=== PATIENT | female | born 1995 | race Caucasian/White ===

== ENCOUNTER 2020-03-11 23:07 | Emergency (ER) | payer MEDICAID ==
[2020-03-11] MEDS ORDERED: Ondansetron 4 MG Tab.DIS PO ONE (23:08)
--- NOTE | 2020-03-11 23:35 | EDM.PDOC ---
ED HPI GENERAL MEDICAL PROBLEM - General Chief Complaint: Gastrointestinal Problem Stated Complaint: VOMITING Time Seen by Provider: 03/11/20 23:30 Source of Information: Reports: Patient History Limitations: Reports: No Limitations - History of Present Illness INITIAL COMMENTS - FREE TEXT/NARRATIVE: 24-year-old female who reports he woke at approximately 9 AM today with nausea and dizziness and then developed vomiting. She reports she has had multiple episodes of vomiting since 9 AM and has not been able to retain any fluids. She states that he found that she tries to drink liquids she has emesis following this. She reports that she has had vomiting times about 20 times today. It is been nonbilious. It has been pretty much whatever she's tried to drink. Have a bowel movement today and it was normal. She has had no fevers. She has had decreased urine output but no dysuria or hematuria. She denies any possibility of . She does report a burning pain in her upper abdomen that is more of a nauseated type feeling and that has been present since she has developed the vomiting. She rates the pain as a 4/10. It does not radiate. It is worse with palpation and with vomiting she also has some burning in her throat. She states she did drink 5-6 on calling drinks last night and when she awoke this morning she thought she just had a "hangover". No headache. She does have some generalized malaise and dizziness/weakness but she has had no syncope or presyncope. There are no other associated signs or symptoms. There are no other modifying factors. 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-Bismol) - Related Data Allergies Allergy/AdvReac Type Severity Reaction Status Date / Time No Known Allergies Allergy Verified 03/11/20 23:20 Home Meds: Home Meds NK [No Known Home Meds] 03/11/20 [History] Past Medical History Psychiatric History: Reports: Anxiety, Depression, Other (See Below) (On no medications.) - Past Surgical History Female Surgical History: Reports: D&C Social & Family History - Tobacco Use Smoking Status *Q: Current Every Day Smoker Years of Tobacco use: 5 Packs/Tins Daily: 1 - Alcohol Use Alcohol Use History: Yes Alcohol Use Frequency: Socially (Sometimes quite heavily) - Recreational Drug Use Recreational Drug Use: No - Living Situation & Occupation 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 Denies: Dysuria, Flank Pain Musculoskeletal: Reports: No Symptoms Skin: Reports: No Symptoms Neurological: Reports: Dizziness Hematologic/Lymphatic: Reports: No Symptoms Immunologic: Reports: No Symptoms ED EXAM, GENERAL - Physical Exam Exam: See Below Exam Limited By: No Limitations General Appearance: Alert, WD/WN, Moderate Distress (Appears in some discomfort. She is, however, nontoxic appearing.) Eye Exam: Bilateral Eye: EOMI, Normal Inspection (Sclera are anicteric), PERRL Ears: Normal External Exam, Hearing Grossly Normal Ear Exam: Bilateral Ear: Auricle Normal Nose: Normal Inspection, Normal Mucosa, No Blood Throat/Mouth: Normal Voice, No Airway Compromise, Other (Mucous membranes) Head: Atraumatic, Normocephalic Neck: Normal Inspection, Supple, Non-Tender, Full Range of Motion Respiratory/Chest: No Respiratory Distress, Lungs Clear, Normal Breath Sounds, No Accessory Muscle Use, Chest Non-Tender Cardiovascular: Normal Peripheral Pulses, Regular Rate, Rhythm, No Murmur Peripheral Pulses: 2+: Radial (L), Radial (R), Dorsalis Pedis (L), Dorsalis Pedis (R) GI/Abdominal: Normal Bowel Sounds, Soft, No Mass, Other (Palpation in her epigastrium causes her to have increased nausea.) Back Exam: Normal Inspection Extremities: Normal Inspection, Normal Range of Motion, Non-Tender, No Pedal Edema, Normal Capillary Refill Neurological: Alert, Oriented, CN II-XII Intact, Normal Cognition, No Motor/ Sensory Deficits Skin Exam: Warm, Dry, Intact, Normal Color, No Rash Course - Vital Signs Last Recorded V/S: Last Vital Signs Temp 36.6 C 03/11/20 23:21 Pulse 61 03/11/20 23:21 Resp 14 03/11/20 23:21 BP 140/91 H 03/11/20 23:21 Pulse Ox 100 03/11/20 23:21 - Orders/Labs/Meds Orders: Active Orders 24 hr Category Date Time Status Sodium Chloride 0.9% [Saline Flush] Med 03/11/20 23:43 Active 10 ml FLUSH ASDIRECTED PRN Peripheral IV Insertion Adult [OM.PC] Routine Oth 03/11/20 23:43 Ordered Medication Orders Sodium Chloride (Saline Flush) 10 ml FLUSH ASDIRECTED PRN PRN Reason: Keep Vein Open Last Admin: 03/12/20 00:09 Dose: 10 ml Labs: Laboratory Tests 03/12/20 03/12/20 03/12/20 Range/Units 00:00 00:00 01:13 WBC 14.1 H (4.5-12.0) X10-3/uL RBC 5.14 (3.23-5.20) x10(6)uL Hgb 15.6 H (11.5-15.5) g/dL Hct 47.0 (30.0-51.3) % MCV 91.4 (80-96) fL MCH 30.3 (27.7-33.6) pg MCHC 33.2 (32.2-35.4) g/dL RDW 12.8 (11.5-15.5) % Plt Count 331 (125-369) X10(3)uL MPV 7.8 (7.4-10.4) fL Add Manual Diff Yes Neutrophils % (Manual) 90 H (46-82) % Lymphocytes % (Manual) 6 L (13-37) % Monocytes % (Manual) 4 (4-12) % Sodium 142 (135-145) mmol/L Potassium 3.8 (3.5-5.3) mmol/L Chloride 104 (100-110) mmol/L Carbon Dioxide 25 (21-32) mmol/L BUN 14 (7-18) mg/dL Creatinine 0.8 (0.55-1.02) mg/dL Est Cr Clr Drug Dosing 118.27 mL/min Estimated GFR (MDRD) > 60 (>60) BUN/Creatinine Ratio 17.5 (9-20) Glucose 127 H (80-116) mg/dL Calcium 9.7 (8.6-10.2) mg/dL Magnesium 1.5 L (1.8-2.5) mg/dL Total Bilirubin 0.7 (0.1-1.3) mg/dL AST 15 (5-25) IU/L ALT 23 (12-36) U/L Alkaline Phosphatase 81 (56-112) IU/L Total Protein 8.3 H (6.0-8.0) g/dL Albumin 4.4 (3.5-5.2) g/dL Globulin 3.9 g/dL Albumin/Globulin Ratio 1.1 Urine Color Yellow (YELLOW) Urine Appearance Slightly cloudy (CLEAR) Urine pH 6.0 (5.0-6.5) Ur Specific Mccrory 1.020 (1.010-1.025) Urine Protein 30 H (NEGATIVE) mg/dL Urine Glucose (UA) Normal (NORMAL) mg/dL Urine Ketones 50 H (NEGATIVE) mg/dL Urine Occult Blood Negative (NEGATIVE) Urine Nitrite Negative (NEGATIVE) Urine Bilirubin Negative (NEGATIVE) Urine Urobilinogen Normal (NEGATIVE) mg/dL Ur Leukocyte Esterase Small H (NEGATIVE) Urine RBC 0-5 (0-5) Urine WBC 0-5 (0-5) Ur Squamous Epith Cells Moderate H (NS,R,O) Amorphous Sediment Few Urine Bacteria Few H (NS) Urine Mucus Many H (NS) Urine HCG, Qual (NEGATIVE) 03/12/20 Range/Units 01:13 WBC (4.5-12.0) X10-3/uL RBC (3.23-5.20) x10(6)uL Hgb (11.5-15.5) g/dL Hct (30.0-51.3) % MCV (80-96) fL MCH (27.7-33.6) pg MCHC (32.2-35.4) g/dL RDW (11.5-15.5) % Plt Count (125-369) X10(3)uL MPV (7.4-10.4) fL Add Manual Diff Neutrophils % (Manual) (46-82) % Lymphocytes % (Manual) (13-37) % Monocytes % (Manual) (4-12) % Sodium (135-145) mmol/L Potassium (3.5-5.3) mmol/L Chloride (100-110) mmol/L Carbon Dioxide (21-32) mmol/L BUN (7-18) mg/dL Creatinine (0.55-1.02) mg/dL Est Cr Clr Drug Dosing mL/min Estimated GFR (MDRD) (>60) BUN/Creatinine Ratio (9-20) Glucose (80-116) mg/dL Calcium (8.6-10.2) mg/dL Magnesium (1.8-2.5) mg/dL Total Bilirubin (0.1-1.3) mg/dL AST (5-25) IU/L ALT (12-36) U/L Alkaline Phosphatase (56-112) IU/L Total Protein (6.0-8.0) g/dL Albumin (3.5-5.2) g/dL Globulin g/dL Albumin/Globulin Ratio Urine Color (YELLOW) Urine Appearance (CLEAR) Urine pH (5.0-6.5) Ur Specific Mccrory (1.010-1.025) Urine Protein (NEGATIVE) mg/dL Urine Glucose (UA) (NORMAL) mg/dL Urine Ketones (NEGATIVE) mg/dL Urine Occult Blood (NEGATIVE) Urine Nitrite (NEGATIVE) Urine Bilirubin (NEGATIVE) Urine Urobilinogen (NEGATIVE) mg/dL Ur Leukocyte Esterase (NEGATIVE) Urine RBC (0-5) Urine WBC (0-5) Ur Squamous Epith Cells (NS,R,O) Amorphous Sediment Urine Bacteria (NS) Urine Mucus (NS) Urine HCG, Qual Negative (NEGATIVE) Meds: Medications Generic Name Dose Route Start Last Admin Trade Name Freq PRN Reason Stop Dose Admin Sodium Chloride 10 ml 03/11/20 23:43 03/12/20 00:09 Saline Flush FLUSH 10 ml ASDIRECTED PRN Administration Keep Vein Open Discontinued Medications Generic Name Dose Route Start Last Admin Trade Name Freq PRN Reason Stop Dose Admin Promethazine HCl 25 mg/ Sodium 51 mls @ 200 mls/hr 03/11/20 23:45 03/12/20 00 :09 Chloride IV 03/12/20 00:00 200 mls/hr ONETIME ONE Administration Sodium Chloride 1,000 mls @ 999 mls/hr 03/11/20 23:44 03/12/20 00:09 Normal Saline IV 03/12/20 00:44 999 mls/hr .BOLUS ONE Administration Magnesium Sulfate 2 gm/ Premix 50 mls @ 150 mls/hr 03/12/20 00:25 03/12/20 00 :32 IV 03/12/20 00:44 150 mls/hr ONETIME ONE Administration Sodium Chloride 1,000 mls @ 999 mls/hr 03/12/20 00:40 Normal Saline IV 03/12/20 01:40 .BOLUS ONE - Re-Assessments/Exams Free Text/Narrative Re-Assessment/Exam: 03/12/20 00:40: Patient has just started getting the 1 L bolus of normal saline. Her Phenergan has infused. She reports relief of her nausea. She has had no more vomiting or dry heaving. She still has had no urine output yet. The patient is getting magnesium IV now and I will have the normal saline bolus continued to be infused. I am awaiting patient to provide urine for urinalysis and urine test. 03/12/20 01:40: The 1 L bolus of normal saline has almost infused at this time. She is sleeping peacefully now. The urinalysis is back and does appear somewhat concentrated but there is no evidence of infection. Her urine test was negative. She has had no further emesis. The plan will be to use the remaining IV normal saline and discharged at that time. I will give her a take- home pack of Zofran. She will be advised to avoid alcohol for the next 2 days and strongly consider stopping alcohol consumption going forward. 03/12/20 01:58: Patient feels better but still has some mild nausea. The dizziness has resolved. She was to go home at this point. I will have her take one of the Zofran ODT's right now. Departure - Departure Time of Disposition: 02:02 Disposition: Home, Self-Care 01 Condition: Good (Improved) Clinical Impression: Dehydration, moderate, Hypomagnesemia Vomiting Qualifiers: Vomiting type: unspecified Vomiting Intractability: intractable Nausea presence : with nausea Qualified Code(s): R11.2 - Nausea with vomiting, unspecified - Discharge Information Instructions: Nausea and Vomiting, Adult, [id number], Dehydration, Adult, [id number] Referrals: Reginald Zamudio MD [Primary Care Provider] - Forms: ED Department Discharge Additional Instructions: Your blood tests were for the most part reassuring. You did have a slightly low magnesium level and we replaced this with IV magnesium. You did appear to be somewhat dehydrated and we have partially corrected this with IV fluids. I suspect that your vomiting was due to overindulgence with alcohol which led to duration and persistent vomiting. He should avoid alcohol for the next few days and I would advise you did strongly consider decreasing your alcohol use or stopping it altogether. Medication as prescribed for nausea (Zofran 4 mg ODT). Increase your fluid intake. Rest. Back to the emergency department for continuing, unrelenting vomiting, fever, abdominal pain, trouble breathing or any other concerning sign or symptom. Sepsis Event Note - Evaluation Sepsis Screening Result: No Definite Risk - Focused Exam Vital Signs: Vital Signs Temp Pulse Resp BP Pulse Ox 03/11/20 23:21 36.6 C 61 14 140/91 H 100 Date Exam was Performed: 03/12/20 Time Exam was Performed: 02:01 - My Orders Last 24 Hours: My Active Orders 03/11/20 23:43 Sodium Chloride 0.9% [Saline Flush] 10 ml FLUSH ASDIRECTED PRN Peripheral IV Insertion Adult [OM.PC] Routine - Assessment/Plan Last 24 Hours: My Active Orders 03/11/20 23:43 Sodium Chloride 0.9% [Saline Flush] 10 ml FLUSH ASDIRECTED PRN Peripheral IV Insertion Adult [OM.PC] Routine
[2020-03-11] MEDS ORDERED: Sodium Chloride 0.9% 10 ML Syringe FLUSH PRN (23:43)
[2020-03-11] MEDS ORDERED: Sodium Chloride 0.9% 1,000 ML IV ONE (23:44)
[2020-03-11] MEDS ORDERED: Promethazine 25 MG in Sodium Chloride 0.9% 50 ML IV ONE (23:45)
[2020-03-12] MEDS ORDERED: Magnesium Sulfate/Water 2 GM in Premix Bag 1 BAG IV ONE (00:25)
[2020-03-12] MEDS ORDERED: Sodium Chloride 0.9% 1,000 ML IV ONE (00:40)
== END 2020-03-12 02:11 | disposition home or self-care (01) ==
LOC: FB.ED 23:07
DX: E86.0 Dehydration (principal); E83.42 Hypomagnesemia; F17.210 Nicotine dependence, cigarettes, uncomplicated
CPT/HCPCS: 36415; 80053; 81001; 81025; 83735; 85025; 96361; 96365; 96367; 99284-25; A9270-GY; J2550; J3475; J7030; J7050